=== PATIENT | female | born 1950 | race Caucasian/White ===

== ENCOUNTER → 2018-11-06 | Outpatient (CLI) | payer MEDICARE, OTHER ==
[~2018-11-06] MED LIST: TRIAMTERENE-HCTZ1 EA PO; VENTOLIN HFA18 GM INH; trelegy ellipta INH
--- NOTE | 2018-11-06 13:23 | Diagnostic Imaging Report ---
EXAMINATION: Renal Doppler ultrasound. CLINICAL HISTORY :Hypertension COMPARISON: None. TECHNIQUE: Grayscale, waveform and color Doppler evaluation of the kidneys and bladder was performed in transverse and longitudinal planes. Doppler interrogation of the main, hilar, segmental and arcuate renal arteries bilaterally as well as evaluation of the aorta were performed. DISCUSSION: RIGHT KIDNEY: The right kidney measures 10.8 cm in length and shows normal echogenicity. The right renal cortex measures 1. cm. No hydronephrosis, shadowing calculi or solid mass lesions. . Right main renal artery PSV is 70.5 cm/sec. Highest right hilar artery PSV is 81.1cm/sec. Highest right segmental artery PSV is 74.3 cm/sec. Arterial waveforms are normal. The right renal artery PSV/aortic PSV ratio is 1.1. LEFT KIDNEY: The left kidney measures 11.5 cm in length and shows normal echogenicity. The left renal cortex measures 1.5 cm. No hydronephrosis, shadowing calculi or solid mass lesions. Left main renal artery PSV is 70.5 cm/sec. Highest left hilar artery PSV is 57.1cm/sec. Highest left segmental artery PSV is 76.6cm/sec. Arterial waveforms are normal. The left renal artery PSV/aortic PSV ratio is 1.0. Abdominal aortic PSV is 73.7 cm/sec. BLADDER: Unremarkable. IMPRESSION: No sonographic evidence of renal artery stenosis. No hydronephrosis or renal calculi. Signed by: Lydia Medina MD on 11/06/2018 1:20 PM
== END ==
LOC: US 11:43
PROVIDERS: ATTEND Family Medicine
DX: I12.9 Hypertensive chronic kidney disease with stage 1 through stage 4 chronic kidney disease, or unspecified chronic kidney disease (principal); N18.3 Chronic kidney disease, stage 3 (moderate)
CPT/HCPCS: 76770; 93976

== ENCOUNTER 2020-02-01 18:11 | Inpatient (IN) | payer MEDICARE, OTHER ==
[~2020-02-01] VITALS: Ht 160 cm; Wt 78.3 kg
[2020-02-01] MEDS ORDERED: ONDANSETRON HCL INJ 2MG/ML 2ML 2 MG/ML VIAL IV STA (21:08)
[2020-02-01] MEDS ORDERED: MORPHINE SULFATE INJ 4 MG/ML INJ 1ML IV PRN (21:15)
[2020-02-01] MEDS: SODIUM CHLORIDE 0.9% 1000ML 1,000 ML IV SCH (21:15)
[2020-02-01] MEDS ORDERED: ONDANSETRON HCL INJ 2MG/ML 2ML 2 MG/ML VIAL ONE (21:18)
[2020-02-01 21:24] LABS: BASOPHILS # (AUTO) 0.1 (0.0-0.1); BASOPHILS % 0.5 % (0.0-1.0); EOSINOPHILS % 0.3 % (0.0-6.0); HEMATOCRIT 33.5 % (34.2-44.1); HEMOGLOBIN 10.5 g/dL (12.0-16.0); LYMPHOCYTES # (AUTO) 1.2 (1.0-3.2); LYMPHOCYTES % 11.1 % (18.0-39.1); MEAN CORPUSCULAR HEMOGLOBIN 28.9 pg (28-32); MEAN CORPUSCULAR HGB CONC 31.3 g/dL (31-35); MEAN CORPUSCULAR VOLUME 92.3 fL (81-99); MONOCYTES # (AUTO) 0.9 (0.2-0.8); MONOCYTES % 7.9 % (4.4-11.3); NEUTROPHILS # (AUTO) 8.3 (2.1-6.9); NEUTROPHILS % 75.9 % (38.7-80.0); PLATELET COUNT 404 x10e3/uL (140-360); RED BLOOD COUNT 3.63 x10e6/uL (3.6-5.1); RED CELL DISTRIBUTION WIDTH 14.3 % (11.7-14.4)
[2020-02-01 21:31] LABS: CLARITY,URINE CLEAR (CLEAR); COLOR,URINE YELLOW (YELLOW); KETONES,URINE TRACE (NEGATIVE); LEUKOCYTE ESTERASE ,URINE NEGATIVE (NEGATIVE); NITRITE,URINE NEGATIVE (NEGATIVE); PROTEIN,URINE DIPSTICK >=300 (NEGATIVE); URINE UROBILINOGEN 0.2 mg/dL (0.2 - 1)
[2020-02-01 21:39] LABS: AMORPHOUS SEDIMENT,URINE FEW (FEW); BACTERIA,URINE MODERATE /HPF; EPITHELIAL CELLS,URINE MODERATE /LPF
[2020-02-01 21:47] LABS: ALBUMIN 2.8 g/dL (3.5-5.0); ALBUMIN/GLOBULIN RATIO 0.8 (0.8-2.0); ANION GAP 17.3 mmol/L (8-16); CALCIUM 8.1 mg/dL (8.4-10.2); CREATININE, SERUM 2.96 mg/dL (0.57-1.11); POTASSIUM 4.3 mmol/L (3.5-5.1)
[2020-02-01 21:53] LABS: CREATINE KINASE MB 27.2 ng/mL (0-5.0)
[2020-02-01] MEDS ORDERED: CEFTRIAXONE SOD 1 GM/NS 50 ML 50 ML IV ONE (22:30)
[2020-02-01] MEDS ORDERED: SODIUM CHLORIDE 0.9% 1000ML 1,000 ML IV STA (22:59)
[2020-02-01] MEDS ORDERED: SODIUM BICARBONATE 8.4% INJ 50 ML SYR IV STA (22:59)
[2020-02-02] VITALS (9 sets, daily range): BP systolic 110–151; BP diastolic 56–84
[2020-02-02] MEDS ORDERED: ONDANSETRON HCL INJ 2MG/ML 2ML 2 MG/ML VIAL ONE (00:08)
[2020-02-02] MEDS: SODIUM CHLORIDE 0.9% 1000ML 1,000 ML IV SCH ×2 (03:43→16:41)
[2020-02-02 05:01] LABS: BASOPHILS % 0.3 % (0.0-1.0); EOSINOPHILS # (AUTO) 0.1 (0.0-0.4); EOSINOPHILS % 0.9 % (0.0-6.0); HEMATOCRIT 30.7 % (34.2-44.1); HEMOGLOBIN 9.7 g/dL (12.0-16.0); LYMPHOCYTES # (AUTO) 1.2 (1.0-3.2); LYMPHOCYTES % 13.7 % (18.0-39.1); MEAN CORPUSCULAR HEMOGLOBIN 29.6 pg (28-32); MEAN CORPUSCULAR HGB CONC 31.6 g/dL (31-35); MEAN CORPUSCULAR VOLUME 93.6 fL (81-99); MONOCYTES # (AUTO) 0.9 (0.2-0.8); MONOCYTES % 9.7 % (4.4-11.3); NEUTROPHILS # (AUTO) 6.3 (2.1-6.9); NEUTROPHILS % 70.5 % (38.7-80.0); PLATELET COUNT 365 x10e3/uL (140-360); RED BLOOD COUNT 3.28 x10e6/uL (3.6-5.1); RED CELL DISTRIBUTION WIDTH 14.3 % (11.7-14.4)
[2020-02-02] MEDS ORDERED: HYDROXYZINE HCL25 MG PO (05:12)
[2020-02-02] MEDS ORDERED: NORVASC10 MG PO (05:12)
[2020-02-02 05:28] LABS: ALBUMIN 2.2 g/dL (3.5-5.0); ALBUMIN/GLOBULIN RATIO 0.8 (0.8-2.0); ANION GAP 14.8 mmol/L (8-16); CALCIUM 7.1 mg/dL (8.4-10.2); CREATININE, SERUM 1.64 mg/dL (0.57-1.11); MAGNESIUM 1.6 MG/DL (1.3-2.1); PHOSPHORUS 4.4 MG/DL (2.3-4.7); POTASSIUM 3.8 mmol/L (3.5-5.1)
[2020-02-02 06:10] LABS: CREATINE KINASE MB 8.3 ng/mL (0-5.0)
[2020-02-02] MEDS ORDERED: ACETAMINOPHEN 325 MG TAB PO PRN (07:45)
[2020-02-02] MEDS: ONDANSETRON HCL INJ 2MG/ML 2ML 2 MG/ML VIAL IV PRN ×3 (10:00→21:21)
[2020-02-02] MEDS ORDERED: HYDROXYZINE HCL 25 MG TAB PO PRN (15:00)
[2020-02-02] MEDS ORDERED: ALBUTEROL SULFATE HFA 8GM INHALATION AEROSOL INH PRN (15:00)
[2020-02-02 16:39] LABS: CREATINE KINASE MB 5.6 ng/mL (0-5.0)
[2020-02-02] MEDS: MORPHINE SULFATE INJ 4 MG/ML INJ 1ML IV PRN (22:16)
[2020-02-03] VITALS (8 sets, daily range): BP systolic 111–136; BP diastolic 63–81
[2020-02-03] MEDS: SODIUM CHLORIDE 0.9% 1000ML 1,000 ML IV SCH ×2 (03:43→13:15)
[2020-02-03 05:46] LABS: BASOPHILS # (AUTO) 0.1 (0.0-0.1); BASOPHILS % 0.5 % (0.0-1.0); EOSINOPHILS # (AUTO) 0.3 (0.0-0.4); EOSINOPHILS % 1.9 % (0.0-6.0); HEMATOCRIT 27.7 % (34.2-44.1); HEMOGLOBIN 8.6 g/dL (12.0-16.0); LYMPHOCYTES # (AUTO) 1.8 (1.0-3.2); LYMPHOCYTES % 13.2 % (18.0-39.1); MEAN CORPUSCULAR HEMOGLOBIN 29.2 pg (28-32); MEAN CORPUSCULAR VOLUME 93.9 fL (81-99); MONOCYTES # (AUTO) 1.1 (0.2-0.8); MONOCYTES % 8.3 % (4.4-11.3); NEUTROPHILS # (AUTO) 9.5 (2.1-6.9); NEUTROPHILS % 71.1 % (38.7-80.0); PLATELET COUNT 342 x10e3/uL (140-360); RED BLOOD COUNT 2.95 x10e6/uL (3.6-5.1); RED CELL DISTRIBUTION WIDTH 14.6 % (11.7-14.4)
[2020-02-03] MEDS: TRELEGY ELLIPTA INH SCH (06:00)
[2020-02-03 06:15] LABS: ANION GAP 13.8 mmol/L (8-16); CREATININE, SERUM 2.49 mg/dL (0.57-1.11); POTASSIUM 3.8 mmol/L (3.5-5.1)
[2020-02-03 06:23] LABS: CALCIUM 6.9 mg/dL (8.4-10.2)
[2020-02-03] MEDS ORDERED: TRIAMTERENE/HCTZ 37.5-25 MG TAB PO SCH (09:00)
[2020-02-03] MEDS: CALCIUM CARBONATE 500 MG CHEWABLE TABS PO SCH ×2 (09:30→16:39)
[2020-02-03] MEDS: AMLODIPINE BESYLATE 10 MG TAB PO SCH (09:30)
[2020-02-03] MEDS: MORPHINE SULFATE INJ 4 MG/ML INJ 1ML IV PRN ×2 (12:34→20:33)
[2020-02-03] MEDS: ONDANSETRON HCL INJ 2MG/ML 2ML 2 MG/ML VIAL IV PRN ×2 (13:09→20:33)
[2020-02-03 14:09] LABS: THYROID STIMULATING HORMONE 0.707 uIU/mL (0.350-4.940)
[2020-02-03] MEDS: PANTOPRAZOLE SOD 40 MG TABEC PO SCH (16:39)
[2020-02-03] MEDS: LACTATED RINGER'S 1,000 ML INJ SCH (20:32)
[2020-02-04] VITALS (8 sets, daily range): BP systolic 111–139; BP diastolic 60–88
[2020-02-04] MEDS: ONDANSETRON HCL INJ 2MG/ML 2ML 2 MG/ML VIAL IV PRN ×4 (01:50→23:48)
[2020-02-04] MEDS: MORPHINE SULFATE INJ 4 MG/ML INJ 1ML IV PRN ×4 (03:58→23:48)
[2020-02-04 04:58] LABS: CALCIUM IONIZED 1.3 mmol/L (1.09-1.30)
[2020-02-04 05:00] LABS: BASOPHILS # (AUTO) 0.1 (0.0-0.1); BASOPHILS % 0.5 % (0.0-1.0); EOSINOPHILS # (AUTO) 0.2 (0.0-0.4); EOSINOPHILS % 2.1 % (0.0-6.0); HEMOGLOBIN 8.4 g/dL (12.0-16.0); LYMPHOCYTES # (AUTO) 1.6 (1.0-3.2); LYMPHOCYTES % 14.3 % (18.0-39.1); MEAN CORPUSCULAR HGB CONC 31.1 g/dL (31-35); MEAN CORPUSCULAR VOLUME 93.1 fL (81-99); MONOCYTES % 8.7 % (4.4-11.3); NEUTROPHILS # (AUTO) 7.6 (2.1-6.9); NEUTROPHILS % 68.8 % (38.7-80.0); PLATELET COUNT 324 x10e3/uL (140-360); RED CELL DISTRIBUTION WIDTH 14.3 % (11.7-14.4)
[2020-02-04 05:12] LABS: ALBUMIN 2.2 g/dL (3.5-5.0); PHOSPHORUS 3.5 MG/DL (2.3-4.7)
[2020-02-04 05:17] LABS: ANION GAP 10.1 mmol/L (8-16); CALCIUM 7.4 mg/dL (8.4-10.2); CREATININE, SERUM 2.28 mg/dL (0.57-1.11); POTASSIUM 4.1 mmol/L (3.5-5.1)
[2020-02-04] MEDS: TRELEGY ELLIPTA INH SCH (05:30)
[2020-02-04] MEDS: LACTATED RINGER'S 1,000 ML INJ SCH ×2 (05:40→15:47)
[2020-02-04 06:40] LABS: EOSINOPHILS % (MANUAL) 3 % (0-7); LYMPHOCYTES % (MANUAL) 11 % (19-48); MONOCYTES % (MANUAL) 11 % (3.4-9.0); MYELOCYTES % (MANUAL) 2 % (0-0); NEUTROPHILS % (MANUAL) 71 % (40-74)
[2020-02-04 06:41] LABS: PLATELET ESTIMATE ADEQUATE; PLATELET MORPHOLOGY COMMENT RARE EDTA CLUMPING; RBC MORPHOLOGY COMMENT NORMAL
[2020-02-04] MEDS: PANTOPRAZOLE SOD 40 MG TABEC PO SCH ×2 (08:06→15:47)
[2020-02-04] MEDS: CALCIUM CARBONATE 500 MG CHEWABLE TABS PO SCH (08:06)
[2020-02-04] MEDS: AMLODIPINE BESYLATE 10 MG TAB PO SCH (08:07)
[2020-02-04] MEDS: SODIUM BICARBONATE 650 MG TAB PO SCH (15:47)
[2020-02-04 22:21] LABS: TOTAL PROTEIN 24HR, URINE 4908.2 mg/24hr (50-100); TOTAL PROTEIN, URINE 220.1 mg/dL (1-14)
[2020-02-05] VITALS (8 sets, daily range): BP systolic 107–156; BP diastolic 57–76
[2020-02-05] MEDS: LACTATED RINGER'S 1,000 ML INJ SCH (04:31)
[2020-02-05 05:06] LABS: BASOPHILS % 0.4 % (0.0-1.0); EOSINOPHILS # (AUTO) 0.3 (0.0-0.4); EOSINOPHILS % 2.9 % (0.0-6.0); HEMATOCRIT 25.4 % (34.2-44.1); HEMOGLOBIN 8.1 g/dL (12.0-16.0); LYMPHOCYTES # (AUTO) 1.4 (1.0-3.2); LYMPHOCYTES % 12.9 % (18.0-39.1); MEAN CORPUSCULAR HEMOGLOBIN 30.1 pg (28-32); MEAN CORPUSCULAR HGB CONC 31.9 g/dL (31-35); MEAN CORPUSCULAR VOLUME 94.4 fL (81-99); MONOCYTES # (AUTO) 0.8 (0.2-0.8); MONOCYTES % 7.3 % (4.4-11.3); NEUTROPHILS # (AUTO) 7.8 (2.1-6.9); NEUTROPHILS % 71.4 % (38.7-80.0); PLATELET COUNT 327 x10e3/uL (140-360); RED BLOOD COUNT 2.69 x10e6/uL (3.6-5.1); RED CELL DISTRIBUTION WIDTH 13.9 % (11.7-14.4)
[2020-02-05 05:13] LABS: CALCIUM IONIZED 1.2 mmol/L (1.09-1.30)
[2020-02-05 05:23] LABS: ALBUMIN 2.2 g/dL (3.5-5.0); ANION GAP 11.2 mmol/L (8-16); CALCIUM 7.6 mg/dL (8.4-10.2); CREATININE, SERUM 2.38 mg/dL (0.57-1.11); MAGNESIUM 1.5 MG/DL (1.3-2.1); PHOSPHORUS 4.2 MG/DL (2.3-4.7); POTASSIUM 4.2 mmol/L (3.5-5.1)
[2020-02-05 05:38] LABS: ALBUMIN/GLOBULIN RATIO 0.9 (0.8-2.0)
[2020-02-05] MEDS: TRELEGY ELLIPTA INH SCH (06:25)
[2020-02-05] MEDS: SODIUM BICARBONATE 650 MG TAB PO SCH ×2 (08:39→15:22)
[2020-02-05] MEDS: PANTOPRAZOLE SOD 40 MG TABEC PO SCH ×2 (08:39→15:22)
[2020-02-05] MEDS: CALCIUM CARBONATE 500 MG CHEWABLE TABS PO SCH (08:39)
[2020-02-05] MEDS: AMLODIPINE BESYLATE 10 MG TAB PO SCH (08:39)
[2020-02-05] MEDS: ONDANSETRON HCL INJ 2MG/ML 2ML 2 MG/ML VIAL IV PRN ×3 (08:40→23:06)
[2020-02-05] MEDS: MORPHINE SULFATE INJ 4 MG/ML INJ 1ML IV PRN ×3 (08:40→23:06)
[2020-02-05] MEDS: EPOETIN ALFA-EPBX 10,000 UNIT/ML VIAL SC SCH (17:10)
[2020-02-06] VITALS (8 sets, daily range): BP systolic 107–142; BP diastolic 46–65
[2020-02-06 05:43] LABS: BASOPHILS # (AUTO) 0.1 (0.0-0.1); BASOPHILS % 0.6 % (0.0-1.0); EOSINOPHILS # (AUTO) 0.3 (0.0-0.4); EOSINOPHILS % 2.8 % (0.0-6.0); HEMATOCRIT 26.4 % (34.2-44.1); LYMPHOCYTES # (AUTO) 1.4 (1.0-3.2); LYMPHOCYTES % 13.6 % (18.0-39.1); MEAN CORPUSCULAR HEMOGLOBIN 29.4 pg (28-32); MEAN CORPUSCULAR HGB CONC 30.3 g/dL (31-35); MEAN CORPUSCULAR VOLUME 97.1 fL (81-99); MONOCYTES # (AUTO) 1.2 (0.2-0.8); MONOCYTES % 11.5 % (4.4-11.3); NEUTROPHILS # (AUTO) 7.1 (2.1-6.9); NEUTROPHILS % 66.9 % (38.7-80.0); PLATELET COUNT 303 x10e3/uL (140-360); RED BLOOD COUNT 2.72 x10e6/uL (3.6-5.1)
[2020-02-06] MEDS: MORPHINE SULFATE INJ 4 MG/ML INJ 1ML IV PRN ×3 (05:55→18:16)
[2020-02-06] MEDS: ONDANSETRON HCL INJ 2MG/ML 2ML 2 MG/ML VIAL IV PRN ×3 (05:55→18:15)
[2020-02-06] MEDS: TRELEGY ELLIPTA INH SCH (06:00)
[2020-02-06 06:22] LABS: ANION GAP 12.6 mmol/L (8-16); CALCIUM 7.6 mg/dL (8.4-10.2); CREATININE, SERUM 2.63 mg/dL (0.57-1.11); MAGNESIUM 1.6 MG/DL (1.3-2.1); POTASSIUM 4.6 mmol/L (3.5-5.1)
[2020-02-06] MEDS: SODIUM BICARBONATE 650 MG TAB PO SCH ×2 (08:52→18:15)
[2020-02-06] MEDS: AMLODIPINE BESYLATE 10 MG TAB PO SCH (08:52)
[2020-02-06] MEDS: PANTOPRAZOLE SOD 40 MG TABEC PO SCH ×2 (08:52→18:15)
[2020-02-06] MEDS: CALCIUM CARBONATE 500 MG CHEWABLE TABS PO SCH (08:53)
[2020-02-06] MEDS: CYANOCOBALAMIN INJ 1,000 MCG/ML VIAL IM SCH (15:30)
[2020-02-06] MEDS: CEFTRIAXONE SOD 1 GM/NS 50 ML 50 ML IV SCH (15:31)
[2020-02-07] VITALS (8 sets, daily range): BP systolic 105–121; BP diastolic 58–69
[2020-02-07] MEDS: ONDANSETRON HCL INJ 2MG/ML 2ML 2 MG/ML VIAL IV PRN ×3 (01:00→22:15)
[2020-02-07] MEDS: MORPHINE SULFATE INJ 4 MG/ML INJ 1ML IV PRN ×3 (01:00→22:15)
[2020-02-07 06:47] LABS: BASOPHILS % 0.4 % (0.0-1.0); EOSINOPHILS # (AUTO) 0.2 (0.0-0.4); EOSINOPHILS % 2.4 % (0.0-6.0); HEMATOCRIT 25.6 % (34.2-44.1); HEMOGLOBIN 7.9 g/dL (12.0-16.0); LYMPHOCYTES # (AUTO) 1.1 (1.0-3.2); LYMPHOCYTES % 11.4 % (18.0-39.1); MEAN CORPUSCULAR HEMOGLOBIN 29.4 pg (28-32); MEAN CORPUSCULAR HGB CONC 30.9 g/dL (31-35); MEAN CORPUSCULAR VOLUME 95.2 fL (81-99); MONOCYTES # (AUTO) 1.1 (0.2-0.8); MONOCYTES % 11.4 % (4.4-11.3); NEUTROPHILS % 70.4 % (38.7-80.0); PLATELET COUNT 313 x10e3/uL (140-360); RED BLOOD COUNT 2.69 x10e6/uL (3.6-5.1); RED CELL DISTRIBUTION WIDTH 14.2 % (11.7-14.4)
[2020-02-07] MEDS: TRELEGY ELLIPTA INH SCH (07:00)
[2020-02-07 07:08] LABS: CALCIUM 7.9 mg/dL (8.4-10.2); CREATININE, SERUM 2.7 mg/dL (0.57-1.11); MAGNESIUM 1.9 MG/DL (1.3-2.1)
[2020-02-07] MEDS: PANTOPRAZOLE SOD 40 MG TABEC PO SCH ×2 (08:40→18:19)
[2020-02-07] MEDS: AMLODIPINE BESYLATE 10 MG TAB PO SCH (08:40)
[2020-02-07] MEDS: CYANOCOBALAMIN INJ 1,000 MCG/ML VIAL IM SCH (08:40)
[2020-02-07] MEDS: CALCIUM CARBONATE 500 MG CHEWABLE TABS PO SCH (08:40)
[2020-02-07] MEDS: SODIUM BICARBONATE 650 MG TAB PO SCH ×2 (08:40→18:19)
[2020-02-07] MEDS: SODIUM FERRIC GLUCONATE COMPLX 125 MG in SODIUM CHLORIDE 0.9% 100 ML 100 ML IV SCH (10:46)
[2020-02-07] MEDS: ALBUTEROL/IPRATROPIUM 3 ML NEB NEB SCH ×2 (13:20→19:40)
[2020-02-07] MEDS: CEFTRIAXONE SOD 1 GM/NS 50 ML 50 ML IV SCH (14:53)
[2020-02-07] MEDS ORDERED: FUROSEMIDE INJ 10 MG/ML 4 ML VIAL IV ONE (19:00)
[2020-02-08] VITALS (7 sets, daily range): BP systolic 103–126; BP diastolic 53–71
[2020-02-08] MEDS: ALBUTEROL/IPRATROPIUM 3 ML NEB NEB SCH ×4 (01:15→20:05)
[2020-02-08 05:19] LABS: BASOPHILS # (AUTO) 0.1 (0.0-0.1); BASOPHILS % 0.5 % (0.0-1.0); EOSINOPHILS # (AUTO) 0.2 (0.0-0.4); EOSINOPHILS % 1.4 % (0.0-6.0); HEMATOCRIT 26.5 % (34.2-44.1); HEMOGLOBIN 8.2 g/dL (12.0-16.0); LYMPHOCYTES # (AUTO) 1.3 (1.0-3.2); LYMPHOCYTES % 10.2 % (18.0-39.1); MEAN CORPUSCULAR HEMOGLOBIN 29.3 pg (28-32); MEAN CORPUSCULAR HGB CONC 30.9 g/dL (31-35); MEAN CORPUSCULAR VOLUME 94.6 fL (81-99); MONOCYTES # (AUTO) 1.3 (0.2-0.8); MONOCYTES % 10.4 % (4.4-11.3); NEUTROPHILS # (AUTO) 9.6 (2.1-6.9); NEUTROPHILS % 74.8 % (38.7-80.0); PLATELET COUNT 297 x10e3/uL (140-360); RED CELL DISTRIBUTION WIDTH 14.3 % (11.7-14.4)
[2020-02-08 05:30] LABS: INR 0.91; PROTHROMBIN TIME 12.7 seconds (11.9-14.5)
[2020-02-08 05:31] LABS: PARTIAL THROMBOPLASTIN TIME 41.2 seconds (23.8-35.5)
[2020-02-08 05:48] LABS: ANION GAP 13.7 mmol/L (8-16); CALCIUM 7.7 mg/dL (8.4-10.2); CREATININE, SERUM 2.64 mg/dL (0.57-1.11); MAGNESIUM 1.8 MG/DL (1.3-2.1); POTASSIUM 3.7 mmol/L (3.5-5.1)
[2020-02-08] MEDS: TRELEGY ELLIPTA INH SCH (07:19)
[2020-02-08] MEDS: SODIUM BICARBONATE 650 MG TAB PO SCH ×2 (09:06→17:09)
[2020-02-08] MEDS: CALCIUM CARBONATE 500 MG CHEWABLE TABS PO SCH (09:06)
[2020-02-08] MEDS: PANTOPRAZOLE SOD 40 MG TABEC PO SCH ×2 (09:06→17:09)
[2020-02-08] MEDS: CYANOCOBALAMIN INJ 1,000 MCG/ML VIAL IM SCH (09:06)
[2020-02-08] MEDS: AMLODIPINE BESYLATE 10 MG TAB PO SCH (09:09)
[2020-02-08] MEDS: ONDANSETRON HCL INJ 2MG/ML 2ML 2 MG/ML VIAL IV PRN ×3 (09:28→22:45)
[2020-02-08] MEDS: MORPHINE SULFATE INJ 4 MG/ML INJ 1ML IV PRN ×3 (09:28→22:45)
[2020-02-08] MEDS: SODIUM FERRIC GLUCONATE COMPLX 125 MG in SODIUM CHLORIDE 0.9% 100 ML 100 ML IV SCH (10:34)
[2020-02-08] MEDS: CEFTRIAXONE SOD 1 GM/NS 50 ML 50 ML IV SCH (14:15)
[2020-02-08] MEDS: EPOETIN ALFA-EPBX 10,000 UNIT/ML VIAL SC SCH (17:09)
[2020-02-09] VITALS (8 sets, daily range): BP systolic 110–133; BP diastolic 59–67
[2020-02-09] MEDS: ALBUTEROL/IPRATROPIUM 3 ML NEB NEB SCH ×4 (01:30→19:40)
[2020-02-09] MEDS: MORPHINE SULFATE INJ 4 MG/ML INJ 1ML IV PRN ×3 (04:50→21:42)
[2020-02-09] MEDS: ONDANSETRON HCL INJ 2MG/ML 2ML 2 MG/ML VIAL IV PRN ×3 (04:50→21:42)
[2020-02-09] MEDS: TRELEGY ELLIPTA INH SCH (05:12)
[2020-02-09 05:36] LABS: ANION GAP 13.2 mmol/L (8-16); CALCIUM 8.1 mg/dL (8.4-10.2); CREATININE, SERUM 2.39 mg/dL (0.57-1.11); MAGNESIUM 1.8 MG/DL (1.3-2.1); POTASSIUM 4.2 mmol/L (3.5-5.1)
[2020-02-09 06:23] LABS: BASOPHILS # (AUTO) 0.1 (0.0-0.1); BASOPHILS % 0.6 % (0.0-1.0); EOSINOPHILS # (AUTO) 0.2 (0.0-0.4); EOSINOPHILS % 1.6 % (0.0-6.0); HEMATOCRIT 24.2 % (34.2-44.1); HEMOGLOBIN 7.5 g/dL (12.0-16.0); LYMPHOCYTES % 9.1 % (18.0-39.1); MEAN CORPUSCULAR HEMOGLOBIN 29.6 pg (28-32); MEAN CORPUSCULAR VOLUME 95.7 fL (81-99); MONOCYTES # (AUTO) 1.1 (0.2-0.8); MONOCYTES % 10.4 % (4.4-11.3); NEUTROPHILS # (AUTO) 8.4 (2.1-6.9); NEUTROPHILS % 76.2 % (38.7-80.0); PLATELET COUNT 303 x10e3/uL (140-360); RED BLOOD COUNT 2.53 x10e6/uL (3.6-5.1); RED CELL DISTRIBUTION WIDTH 14.8 % (11.7-14.4)
[2020-02-09] MEDS: PANTOPRAZOLE SOD 40 MG TABEC PO SCH ×2 (07:30→16:56)
[2020-02-09] MEDS: SODIUM BICARBONATE 650 MG TAB PO SCH ×2 (08:07→16:56)
[2020-02-09] MEDS: CALCIUM CARBONATE 500 MG CHEWABLE TABS PO SCH (09:00)
[2020-02-09] MEDS ORDERED: MIDAZOLAM HCL 2 MG/2 ML VIAL ONE (09:37)
[2020-02-09] MEDS ORDERED: FENTANYL CITRATE/PF 100MCG/2 ML INJ ONE (09:37)
[2020-02-09] MEDS: SODIUM FERRIC GLUCONATE COMPLX 125 MG in SODIUM CHLORIDE 0.9% 100 ML 100 ML IV SCH (12:46)
[2020-02-09] MEDS: AMLODIPINE BESYLATE 10 MG TAB PO SCH (13:37)
[2020-02-09] MEDS: CEFTRIAXONE SOD 1 GM/NS 50 ML 50 ML IV SCH (14:24)
[2020-02-09] MEDS: METOCLOPRAMIDE HCL 10 MG/2ML VIAL IV SCH (17:51)
[2020-02-10] VITALS: BP 101/58
[2020-02-10] MEDS: METOCLOPRAMIDE HCL 10 MG/2ML VIAL IV SCH ×4 (00:09→17:37)
[2020-02-10] MEDS: ALBUTEROL/IPRATROPIUM 3 ML NEB NEB SCH ×3 (01:12→13:00)
[2020-02-10 04:00] VITALS: BP 121/68
[2020-02-10] MEDS: TRELEGY ELLIPTA INH SCH (05:41)
[2020-02-10 08:00] VITALS: BP 110/59
[2020-02-10 08:00] LABS: BASOPHILS # (AUTO) 0.1 (0.0-0.1); BASOPHILS % 0.4 % (0.0-1.0); EOSINOPHILS # (AUTO) 0.1 (0.0-0.4); EOSINOPHILS % 0.9 % (0.0-6.0); HEMATOCRIT 28.1 % (34.2-44.1); HEMOGLOBIN 8.6 g/dL (12.0-16.0); LYMPHOCYTES # (AUTO) 1.4 (1.0-3.2); LYMPHOCYTES % 9.2 % (18.0-39.1); MEAN CORPUSCULAR HEMOGLOBIN 29.5 pg (28-32); MEAN CORPUSCULAR HGB CONC 30.6 g/dL (31-35); MEAN CORPUSCULAR VOLUME 96.2 fL (81-99); MONOCYTES # (AUTO) 1.3 (0.2-0.8); MONOCYTES % 8.7 % (4.4-11.3); NEUTROPHILS # (AUTO) 11.9 (2.1-6.9); NEUTROPHILS % 79.1 % (38.7-80.0); PLATELET COUNT 338 x10e3/uL (140-360); RED BLOOD COUNT 2.92 x10e6/uL (3.6-5.1); RED CELL DISTRIBUTION WIDTH 15.2 % (11.7-14.4)
[2020-02-10 08:29] LABS: CALCIUM 8.3 mg/dL (8.4-10.2); CREATININE, SERUM 2.31 mg/dL (0.57-1.11); MAGNESIUM 1.9 MG/DL (1.3-2.1)
[2020-02-10] MEDS: SODIUM BICARBONATE 650 MG TAB PO SCH ×2 (08:41→17:37)
[2020-02-10] MEDS: PANTOPRAZOLE SOD 40 MG TABEC PO SCH ×2 (08:41→17:37)
[2020-02-10] MEDS: CALCIUM CARBONATE 500 MG CHEWABLE TABS PO SCH (08:41)
[2020-02-10] MEDS: AMLODIPINE BESYLATE 10 MG TAB PO SCH (08:41)
[2020-02-10 08:56] VITALS: BP 110/59
[2020-02-10] MEDS: SODIUM FERRIC GLUCONATE COMPLX 125 MG in SODIUM CHLORIDE 0.9% 100 ML 100 ML IV SCH (09:35)
[2020-02-10] MEDS: ONDANSETRON HCL INJ 2MG/ML 2ML 2 MG/ML VIAL IV PRN ×2 (10:57→15:59)
[2020-02-10] MEDS: MORPHINE SULFATE INJ 4 MG/ML INJ 1ML IV PRN ×2 (11:15→15:59)
[2020-02-10 11:50] VITALS: BP 123/69
[2020-02-10] MEDS: CEFTRIAXONE SOD 1 GM/NS 50 ML 50 ML IV SCH (14:16)
[2020-02-10 16:00] VITALS: BP 123/67
[2020-02-10] MEDS: EPOETIN ALFA-EPBX 10,000 UNIT/ML VIAL SC SCH (17:37)
[2020-02-10] MEDS ORDERED: REGLAN10 MG PO (17:53)
[2020-02-10] MEDS ORDERED: PANTOPRAZOLE SO40 MG PO (17:53)
== END 2020-02-10 18:04 | disposition home or self-care (01) | DRG 872 ==
LOC: ER 18:41 → ERHOLD 23:03 → MED/SURG2 02-02 02:02
PROC: 0TB13ZX Excision of Left Kidney, Percutaneous Approach, Diagnostic (ICD-10-PCS; principal; 2020-02-09)
DX: A41.9 Sepsis, unspecified organism (principal); N17.9 Acute kidney failure, unspecified; E87.2 Acidosis; N39.0 Urinary tract infection, site not specified; I13.0 Hypertensive heart and chronic kidney disease with heart failure and stage 1 through stage 4 chronic kidney disease, or unspecified chronic kidney disease; I50.32 Chronic diastolic (congestive) heart failure; I48.91 Unspecified atrial fibrillation; E86.0 Dehydration; E78.5 Hyperlipidemia, unspecified; J45.909 Unspecified asthma, uncomplicated; N18.30 Chronic kidney disease, stage 3 unspecified; I25.10 Atherosclerotic heart disease of native coronary artery without angina pectoris; E87.6 Hypokalemia; D63.1 Anemia in chronic kidney disease; Z99.81 Dependence on supplemental oxygen; D51.9 Vitamin B12 deficiency anemia, unspecified; J43.9 Emphysema, unspecified; Z20.828 Contact with and (suspected) exposure to other viral communicable diseases
CPT/HCPCS: 36415; 50200; 71045; 74176; 74470; 76770; 76942; 80048; 80053; 81001; 81050; 82040; 82270; 82550; 82553; 82607; 82728; 83520; 83540; 83605; 83690; 83735; 83880; 84100; 84156; 84165; 84436; 84443; 84466; 84479; 84484; 85025; 85045; 85610; 85730; 86021; 86039; 86160; 86225; 86803; 87040; 87086; 87340; 93005; 93306; 94640; 96360; 96374; 96375; 96376; 99284; J0696; J1940; J2250; J2270; J2405; J2765; J2916; J3010; J3420; J7030; J7121; U0002

== ENCOUNTER → 2020-04-13 | Day surgery (SDC) | payer MEDICARE ==
[2020-04-08 09:48] LABS: BASOPHILS # (AUTO) 0.1 (0.0-0.1); BASOPHILS % 0.6 % (0.0-1.0); EOSINOPHILS # (AUTO) 0.3 (0.0-0.4); HEMOGLOBIN 10.4 g/dL (12.0-16.0); LYMPHOCYTES # (AUTO) 1.9 (1.0-3.2); LYMPHOCYTES % 15.2 % (18.0-39.1); MEAN CORPUSCULAR HEMOGLOBIN 29.1 pg (28-32); MEAN CORPUSCULAR HGB CONC 30.6 g/dL (31-35); MONOCYTES % 7.6 % (4.4-11.3); NEUTROPHILS # (AUTO) 9.1 (2.1-6.9); PLATELET COUNT 361 x10e3/uL (140-360); RED BLOOD COUNT 3.58 x10e6/uL (3.6-5.1); RED CELL DISTRIBUTION WIDTH 14.8 % (11.7-14.4)
[2020-04-08 10:14] LABS: ANION GAP 16.3 mmol/L (8-16); CALCIUM 8.5 mg/dL (8.4-10.2); CREATININE, SERUM 3.25 mg/dL (0.57-1.11); POTASSIUM 4.3 mmol/L (3.5-5.1)
[2020-04-08 10:29] LABS: INR 0.8; PROTHROMBIN TIME 11.5 seconds (11.9-14.5)
[~2020-04-13] MED LIST changes: +FENTANYL CITRATE/PF 100MCG/2 ML INJ ONE; +HYDROXYZINE HCL25 MG PO; +HYOSCYAMINE SULFATE 0.5 MG/ML INJ ONE; +LIDOCAINE HCL 2% LOCAL INJ 5 ML SDV VIAL INJ ONE; +MIDAZOLAM HCL 2 MG/2 ML VIAL ONE; +NORVASC10 MG PO; +PANTOPRAZOLE SO40 MG PO; +PROPOFOL IV EMULSION 10 MG/ML 20 ML VIAL ONE; +REGLAN10 MG PO; +SIMETHICONE 40 MG/0.6 ML BTL ONE
[2020-04-13 14:45] VITALS: BP 149/88
[2020-04-13 15:40] LABS: WBC,FECAL (FECAL LACTOFERRIN) NEGATIVE (NEGATIVE)
[2020-04-14 13:54] LABS: C DIFFICILE TOXIN A&B AMP PROB NEGATIVE (NEGATIVE)
== END | disposition home or self-care (01) ==
LOC: OR 15:12
PROVIDERS: ATTEND Internal Medicine Gastroenterology
DX: K29.60 Other gastritis without bleeding (principal); D12.2 Benign neoplasm of ascending colon; D12.3 Benign neoplasm of transverse colon; D12.4 Benign neoplasm of descending colon; D12.5 Benign neoplasm of sigmoid colon; K62.1 Rectal polyp; K31.7 Polyp of stomach and duodenum; K51.50 Left sided colitis without complications; K20.90 Esophagitis, unspecified without bleeding; K21.9 Gastro-esophageal reflux disease without esophagitis; K31.84 Gastroparesis; K31.89 Other diseases of stomach and duodenum; K22.5 Diverticulum of esophagus, acquired; K44.9 Diaphragmatic hernia without obstruction or gangrene; K57.30 Diverticulosis of large intestine without perforation or abscess without bleeding; K62.89 Other specified diseases of anus and rectum; K64.8 Other hemorrhoids; I12.9 Hypertensive chronic kidney disease with stage 1 through stage 4 chronic kidney disease, or unspecified chronic kidney disease; N18.4 Chronic kidney disease, stage 4 (severe); J44.9 Chronic obstructive pulmonary disease, unspecified; M19.90 Unspecified osteoarthritis, unspecified site; M54.9 Dorsalgia, unspecified; Z88.6 Allergy status to analgesic agent; Z88.1 Allergy status to other antibiotic agents; Z88.8 Allergy status to other drugs, medicaments and biological substances; Z01.812 Encounter for preprocedural laboratory examination; Z20.822 Contact with and (suspected) exposure to COVID-19; Z68.28 Body mass index [BMI] 28.0-28.9, adult; Z85.43 Personal history of malignant neoplasm of ovary; Z80.0 Family history of malignant neoplasm of digestive organs
CPT/HCPCS: 36415; 43239; 45380; 45384; 45385; 80048; 83630; 83993; 85025; 85610; 85730; 87045; 87177; 87328; 87493; J1980; U0002; 45378; J2001; J2250; J3010

== ENCOUNTER → 2020-06-07 | Outpatient (CLI) | payer MEDICARE ==
[~2020-06-07] MED LIST changes: -FENTANYL CITRATE/PF 100MCG/2 ML INJ ONE; -HYOSCYAMINE SULFATE 0.5 MG/ML INJ ONE; -LIDOCAINE HCL 2% LOCAL INJ 5 ML SDV VIAL INJ ONE; -MIDAZOLAM HCL 2 MG/2 ML VIAL ONE; -PROPOFOL IV EMULSION 10 MG/ML 20 ML VIAL ONE; -SIMETHICONE 40 MG/0.6 ML BTL ONE
== END ==
LOC: CT 11:57
PROVIDERS: ATTEND Internal Medicine Nephrology
DX: N28.1 Cyst of kidney, acquired (principal); N18.4 Chronic kidney disease, stage 4 (severe)
CPT/HCPCS: 74150

== ENCOUNTER → 2020-09-28 | Outpatient (CLI) | payer MEDICARE | LOC: NM 08:19 | PROVIDERS: ATTEND Urology | DX: N20.0 Calculus of kidney (principal) | CPT/HCPCS: 78707; A9562 ==

== ENCOUNTER → 2020-11-11 | Outpatient (CLI) | payer MEDICARE | LOC: NM 09:29 | PROVIDERS: ATTEND Urology | DX: E21.3 Hyperparathyroidism, unspecified (principal) | CPT/HCPCS: 78071; A9512 ==